=== PATIENT | female | born 1965 | race Caucasian/White ===

== ENCOUNTER 2024-07-17 13:02 | Outpatient (AMB) | payer BC, SELFPAY ==
--- NOTE | 2024-07-17 13:28 | HO.NEPHOV ---
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 She is on a chronic potassium chloride supplement, was hospitalized for a day in June 2024 for chest pain, potassium was found to be 2.3 upon admission, increased to 3.4 upon discharge. 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[employer] Surgical History (Updated 07/12/24 @ 12:25 by Claire Benedict MA) Hx of hysterectomy Hx of laparoscopic gastric banding Hx of cholecystectomy Social History (Updated 07/17/24 @ 13:36 by Yancy Garcias MA) Alcohol intake: never Patient Tobacco Use Status: Never used Tobacco Review of Systems Const Details: Const Denies body aches, Denies chills, Denies excessive sweating and Denies fatigue Eyes Denies blurry vision and Denies change in vision ENT Denies bleeding gums and Denies change in voice Card Denies chest pain and Denies leg ulcers Resp Denies cough and Denies excessive phlegm production GI Denies abdominal pain and Denies bloating Denies hematuria, Denies urinary frequency and Denies difficulty voiding Musc Denies abnormal gait Neuro Denies Neuro-related abnormal movements, Denies abnormal gait and Denies behavioral changes Psych Denies behavioral changes and Denies change in appetite Endo Denies change in body appearance, Denies cold intolerance, Denies excessive sweating and Denies fatigue Physical Exam Vital Signs: Last Vital Signs Pulse 57 07/17/24 13:32 BP 116/74 07/17/24 13:32 Pulse Ox 97 07/17/24 13:32 Oxygen Delivery Method Room Air 07/17/24 13:32 BMI result Body Mass Index 33.9 General: Not in any acute distress, comfortable, sitting on the chair Nutritional Appearance: well nourished and overweight Eyes: appearance normal, both eyes and all related structures; Alignment and Position: alignment normal and position normal Neck: No lymphadenopathy, no thyromegaly Resp: bilateral air entry equal, no added sounds present Cardio: Regular rate, regular rhythm; Heart sounds: S1 normal heart sound present and S2 normal heart sound present, no edema GI: soft, nontender, no guarding, no hepatosplenomegaly : bladder normal to inspection, bladder normal to palpation, no renal angle tenderness Skin: no rashes or lesions noted and elasticity normal Neuro: oriented to person, oriented to place, oriented to time and moves all extremities Results Reviewed Nephrology Results: No Data to Display Assessment & Plan Assessment & Plan (1) Chronic hypokalemia: Code(s): E87.6 - Hypokalemia Category: Medical (2) Anxiety: Code(s): F41.9 - Anxiety disorder, unspecified Category: Medical Plan Hypokalemia mild/moderate/severe: - most recent potassium: 3.4 at discharge - symptoms: no weakness, cramps, constipation - medications: ropinrole, quiteapin, estradiol,citalopram - diet: seems like good oral intake of potassium - we will check spot urine potassium/creatinine ratio, 24 hour urine potassium, calcium and Mg to look renal or extrarenal cause - we will get magnesium, calcium levels - blood pressures okay, unlikely to be renin aldosterone problems will see her back in 1 month Orders: Orders Calcium Today E87.6 - Hypokalemia, F41.9 - Anxiety disorder, unspecified Calcium, 24 Hr Ur Today E87.6 - Hypokalemia, F41.9 - Anxiety disorder, unspecified Magnesium, 24Hr Urine Today E87.6 - Hypokalemia, F41.9 - Anxiety disorder, unspecified Basic Metabolic Panel Today E87.6 - Hypokalemia, F41.9 - Anxiety disorder, unspecified Potassium Urine Random Today E87.6 - Hypokalemia, F41.9 - Anxiety disorder, unspecified Potassium 24 Hr Urine Group Today E87.6 - Hypokalemia, F41.9 - Anxiety disorder, unspecified Creatinine Clearance Urine 24U Today E87.6 - Hypokalemia, F41.9 - Anxiety disorder, unspecified Creatinine Urine Today E87.6 - Hypokalemia, F41.9 - Anxiety disorder, unspecified Coding Level of Care Code New Pt Level 4 (40872) Diagnoses Chronic hypokalemia E87.6 Anxiety F41.9
[2024-07-17 13:32] VITALS: BP 116/74; PULSE 57; O2SAT 97; BMI 33.9
--- OUTSIDE RECORDS SUMMARY | 2024-07-17 14:45 | XMS_ITS | Clinical Summary ---
Author Organization [facility] Address [address] [address] Phone Care Team Providers Care Checker Name Role Phone Jake Singh MD Primary Care Provider [phone] Social History Tobacco Use Types Packs/Day Years Used Date Smoking Tobacco: Never Assessed Comments Unknown Sex and Gender Information Value Date Recorded Sex Assigned at Not on file Legal Sex Female 8:05 AM EDT Gender Identity Not on file Sexual Orientation Not on file Plan of Treatment Upcoming Encounters Date Type Department Care Team (Late st Contact Info) Description 08/15/2024 3:45 PM EDT Office Visit [facility] [address] [address] Daryl Dyer MD [address] [address] Health Maintenance Due Date Last Done Comments Breast Cancer Screening 1965 Hepatitis B Vaccine (1 of 3 - 19+ 3-dose series) 08/26 Colorectal Cancer Screening: Annual FOBT 2013 Colorectal Cancer Screening: Colonoscopy 2013 Colorectal Cancer Screening: Sigmoidoscopy 2013 Pneumococcal Vaccine: 50+ Years (2 of 2 - PCV) 015 10/27/2006 Influenza Vaccine (Season Ended) 2024 Insurance [facility] Care Teams Checker Relationship Specialty Start Date End Date Jake Singh MD 175 [facility] [address] [place] [address] PCP - General Internal Medicine 07/05/24
== END 2024-07-17 14:14 | disposition home or self-care (01) ==
LOC: HO.HKAS 13:03
PROVIDERS: PCP Internal Medicine; Visit Provider Internal Medicine Critical Care Medicine
DX: E87.6 Hypokalemia (principal); F41.9 Anxiety disorder, unspecified
CPT/HCPCS: 99204

== ENCOUNTER 2024-07-17 14:20 | Outpatient (REF) | payer BC, SELFPAY ==
[2024-07-17 18:04] LABS: Anion Gap 11 (12-20); Blood Urea Nitrogen 10 mg/dL (9-16); Calcium 8.1 mg/dL (8.4-10.2); Carbon Dioxide 28 mmol/L (22-29); Chloride 107 mmol/L (96-108); Estimated Glomerular Filt Rate > 60; Glucose Random 97 mg/dL (60-115); Potassium 3.3 mmol/L (3.3-5.1); Sodium 143 mmol/L (135-145)
[2024-07-17 18:08] LABS: Creatinine Urine 416.79 mg/dL; Potassium Urine Random 110.8 mmol/L
== END 2024-07-17 14:21 | disposition home or self-care (01) ==
LOC: HO.HKASLDS 14:20
PROVIDERS: Visit Provider Internal Medicine Critical Care Medicine
DX: F41.9 Anxiety disorder, unspecified (principal); E87.6 Hypokalemia
CPT/HCPCS: 36415; 80048; 82570; 84133

== ENCOUNTER 2024-07-24 15:44 | Outpatient (REF) | payer BC, SELFPAY ==
--- OUTSIDE RECORDS SUMMARY | 2024-07-24 17:38 | XMS_ITS | Clinical Summary ---
Author Organization [facility] Address [address] [address] Phone Care Team Providers Care Developer Relations Manager Name Role Phone Jake Singh MD Primary Care Provider [phone] Social History Tobacco Use Types Packs/Day Years [...] Office Visit [facility] [address] [address] Daryl Dyer MD [address] [address] Health Maintenance Due Date Last Done Comments Breast Cancer Screening 1964 Hepatitis B Vaccine (1 of 3 - 19+ 3-dose series) 08/26 Colorectal Cancer Screening: Annual FOBT 2013 Colorectal Cancer Screening: Colonoscopy 2013 Colorectal Cancer Screening: Sigmoidoscopy 2013 Pneumococcal Vaccine: 50+ Years (2 of 2 - PCV) 015 10/27/2006 Influenza Vaccine (Season Ended) 2024 Insurance [facility] Care Teams Developer Relations Manager Relationship Specialty Start Date End Date Jake Singh MD 175 [facility] 200 [place] [address] PCP - General Internal Medicine 07/05/24
[2024-07-24 18:19] LABS: Creatinine, mg/dL 230.42; Potassium, 24U 41.9 mmol/L
[2024-07-24 19:44] LABS: Creatinine, 24Hr Urine 1.2 G/Day (1.0-2.0); Total Volume 24 Hour Urine 525 mL
[2024-07-24 19:47] LABS: Creatinine (CrCl) 0.77 mg/dL (0.5-1.4); Creatinine Clearance 109.1 mL/min (85-125)
[2024-07-28 00:43] LABS: Creatinine, 24H Ur 1.15 g/24 h (0.50-2.15); Magnesium, 24H Urine 20 mg/24 h (18-130); Magnesium, Urine 24H/g Creat 17 mg/g creat (30-135); Total Volume 525 mL
[2024-08-02 18:59] LABS: Calcium, 24 Hr Urine 14 mg/24 h; Calcium/Creatinine Ratio 12 mg/g creat (30-275); Creatinine 24Hr Urine 1.15 g/24 h (0.50-2.15)
== END 2024-07-24 15:45 | disposition home or self-care (01) ==
LOC: HO.HKASLDS 15:44
PROVIDERS: Visit Provider Internal Medicine Critical Care Medicine
DX: E87.6 Hypokalemia (principal); F41.9 Anxiety disorder, unspecified
CPT/HCPCS: 82340; 82575; 83735; 84133

== ENCOUNTER 2024-07-24 16:11 | Outpatient (REF) | payer BC, SELFPAY ==
[2024-07-24 18:17] LABS: Calcium 8.2 mg/dL (8.4-10.2)
[2024-07-24 18:20] LABS: Estimated Glomerular Filt Rate > 60
== END 2024-07-24 16:12 | disposition home or self-care (01) ==
LOC: HO.HKASLDS 16:11
PROVIDERS: Visit Provider Internal Medicine Critical Care Medicine
DX: E87.6 Hypokalemia (principal); F41.9 Anxiety disorder, unspecified
CPT/HCPCS: 36415; 82310; 82565

== ENCOUNTER 2024-08-23 10:51 | Outpatient (AMB) | payer BC, SELFPAY ==
[2024-08-23 10:52] VITALS: BP 112/86; BMI 34.0
--- NOTE | 2024-08-23 10:52 | HO.NEPHOV_ITS ---
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 She is on a chronic potassium chloride supplement, was hospitalized for a day in June 2024 for chest pain, potassium was found to be 2.3 upon admission, increased to 3.4 upon discharge. She is on KCl 20meq daily. Her 24hr urine potassium, Magnesium and calcium levels are low suggesting extra renal loss. 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[employer] Surgical History Hx of hysterectomy Hx of laparoscopic gastric banding Hx of cholecystectomy Social History Alcohol intake: never Patient Tobacco Use Status: Never used Tobacco Physical Exam Vital Signs: Last Vital Signs BP 112/86 08/23/24 10:52 BMI result Body Mass Index 34.0 General: lady with red dyed hairs, not in acute distress, very calm and pleasant Nutritional Appearance: well nourished and overweight Eyes: appearance normal, both eyes and all related structures; Alignment and Position: alignment normal and position normal Neck: No lymphadenopathy, no thyromegaly Resp: bilateral air entry equal, no added sounds present Cardio: Regular rate, regular rhythm; Heart sounds: S1 normal heart sound present and S2 normal heart sound present GI: soft, nontender, no guarding, no hepatosplenomegaly : bladder normal to inspection, bladder normal to palpation, no renal angle tenderness Skin: no rashes or lesions noted and elasticity normal Neuro: oriented to person, oriented to place, oriented to time and moves all extremities Results Reviewed Nephrology Results: Sodium, (135-145) 143 mmol/L 07/17/24 Potassium, (3.3-5.1) 3.3 mmol/L 07/17/24 Chloride, (96-108) 107 mmol/L 07/17/24 Carbon Dioxide, (22-29) 28 mmol/L 07/17/24 BUN, (9-16) 10 mg/dL 07/17/24 Creatinine, (0.5-1.4) 0.77 mg/dL 07/24/24 Calcium, (8.4-10.2) 8.2 mg/dL L 07/24/24 Urine Creatinine 416.79 mg/dL 07/17/24 Assessment & Plan Assessment & Plan (1) Chronic hypokalemia: Code(s): E87.6 - Hypokalemia Category: Medical (2) Anxiety: Code(s): F41.9 - Anxiety disorder, unspecified Category: Medical Plan Hypokalemia mild/moderate/severe: - most recent potassium: 3.4 at discharge, will repeat again today and will give her a call. - symptoms: no weakness, cramps, constipation - medications: ropinrole, quiteapin, estradiol,citalopram - diet: seems like good oral intake of potassium - 24 hrs urine showed low K, Calcium as well as Magnesium levels suggestive of extra renal loss. She is also alkalotic, ruling out RTA. - we will get magnesium, calcium levels - blood pressures okay, unlikely to be renin aldosterone problems, low aldosterone in the hospital but did not check renin levels Orders: Orders Aldost/Renin Today E87.6 - Hypokalemia, F41.9 - Anxiety disorder, unspecified Basic Metabolic Panel Today E87.6 - Hypokalemia, F41.9 - Anxiety disorder, unspecified Magnesium Today E87.6 - Hypokalemia, F41.9 - Anxiety disorder, unspecified Coding Level of Care Code Est Pt Level 3 (71445) Diagnoses Chronic hypokalemia E87.6 Anxiety F41.9
--- OUTSIDE RECORDS SUMMARY | 2024-08-23 11:37 | XMS_ITS | Clinical Summary ---
Author Organization [facility] Address [address] [place] [address] Care Team Providers Care Belt Picker Name Role Phone Jake Singh MD Primary Care Provider Unavailab le Allergies No known active allergies Medications Medication Sig Dispensed Refills Start Date End Date Status QUEtiapine (SEROquel) 12.5 MG split tablet Take 2 split tablet (25 mg total) by mouth every night at bedtime. 0 Active estradiol (ESTRACE) 2 MG tablet Take 1 tablet (2 mg total) by mouth daily. 0 Active citalopram (CeleXA) 20 MG tablet Take 1 tablet (20 mg total) by mouth daily. 0 Active ROPINIROLE HCL PO Take by mouth. 0 Act priscilla clindamycin (CLINDAGEL) 1 % gelIndications:Hidra denitis Suppurativa Apply 1 application topically 2 (two) times a day. to perianal region (by Dr. Lyons) 0 Active Family History Medical History Relation Name Comments Cancer Neg Hx Social History Tobacco Use Types Packs/Day Years Used Date Smoking Tobacco: Never Tobacco Cessation:Counseling Given: Not Answered Alcohol Use Standard Drinks/Week Comments Yes 0 (1 standard drink = 0.6 oz pur e alcohol) Social drinker Sex and Gender Information Value Date Recorded Sex Assigned at Female 06/11/2022 2:03 PM EDT Gender Identity Not on file Sexual Orientation Not on file Job Start Date Occupation Industry Not on file Not on file Not on file Last Filed Vital Signs Vital Sign Reading Time Taken Comments Blood Pressure 139/78 10/01/2023 1:32 PM EDT Pulse 88 10/01/2023 1:32 PM EDT Temperature 36.6 C (97.9 F) 10/01/2023 1:32 PM EDT Respiratory Rate - - Oxygen Saturation 83% 10/01/2023 1:3 2 PM EDT pt has very long nails on Inhaled Oxygen Concentration - - Weight 95 kg (209 lb 6.4 oz) 10/01/2023 1:32 PM EDT Height 161.5 cm (5' 3.6 ) 06/24/2022 1: 03 PM EDT Body Mass Index 36.4 06/24/2022 1:03 PM EDT Plan of Treatment Health Maintenance Due Date Last Done Comments Hepatitis B Vaccines (1 of 3 - 3-dose series) 1964 Hepatitis C Screening 1964 COVID-19 Vaccine (#1) 02/26/1965 Depression Screening 1976 Preventative Health Evaluation 1982 Cervical Cancer Screening (P ap Smear) 1985 Colon Cancer Screening (Colonoscopy) 2009 Breast Cancer Screening (Mammogram) 2014 Shingrix-Zoster Vaccine (1 of 2) 2014 DTap / Tdap / Td (2 - Td or Tdap) 01/23/2021 011 Influenza Vaccine (#1) 2024 Pneumococcal Vaccine Aged Out 10/27/2006 No long er eligible based on patient's age to complete this topic RSV Ped < 20 months Aged Out No longe r eligible based on patient's age to complete this topic Care Teams Belt Picker Relationship Specialty Start Date End Date Jake Singh MD PCP - General Internal Medicine 06/11/22
--- OUTSIDE RECORDS SUMMARY | 2024-08-23 11:37 | XMS_ITS | Clinical Summary ---
Author Organization 175 [facility] Address [address] [place] [address] Phone Care Team Providers Care Archeology Faculty Member Name Role Phone Jake Singh MD Primary Care Provider [phone] Allergies No known active allergies Medications potassium chloride 20 mEq tablet extended release Take 2 tablets by mouth 1 (one) time each day. Active estradioL (ESTRACE) 2 mg tablet Take 1 tablet (2 mg total) by mouth 1 (one) time each day. 90 tablet 1 5 Active rOPINIRole (REQUIP) 4 mg tabletIndicatio ns:Restless legs syndrome Take 1 tablet (4 mg total) by mouth at bedtime. 90 tablet 1 5 Active meloxicam (MOBIC) 15 mg tabletIndicatio ns:Bicipital tendonitis of right shoulder,Right lateral epicondylitis,D e Quervain's tenosynovitis, right Take 1 tablet (15 mg total) by mouth 1 (one) time each day if needed for moderate pain. Take with food. 30 each 5 08/02/19 26 Active citalopram (CeleXA) 20 mg tablet Take 1 tablet (20 mg total) by mouth at bedtime. 90 tablet 1 5 Active QUEtiapine (SEROquel) 25 mg tablet Take 1 tablet (25 mg total) by mouth at bedtime. 90 tablet 1 5 Active QUEtiapine (SEROquel) 25 mg tablet Take 1 tablet (25 mg total) by mouth at bedtime. 08/16/19 25 Discontinu ed(Reorder ) citalopram (CeleXA) 20 mg tablet Take 1 tablet (20 mg total) by mouth at bedtime. 08/16/19 25 Discontinu ed(Reorder ) Active Problems No known active problems Encounters Date Type Department Care Team Description 08/21/2024 11:30 AM EDT Consult General Surgery - [address] [place] [id number] Brandon Lomeli MD Hidradenitis suppurativa 08/01/2024 3:15 PM EDT Office Visit Internal Medicine - [place] [facility] [address] [place] [address] Jami Watson PA Bicipital tendonitis of right shoulder (Primary Dx); Right lateral epicondylitis; De Quervain's tenosynovitis, right 06/30/2024 11:15 AM EDT Office Visit Internal Medicine [facility] 175 [facility] [address] [place] [address] Jake Singh MD Hospital discharge follow-up (Primary Dx); Chest pain at rest; Hypokalemia; Epidermoid cyst of skin of inguinal region from Last 3 Months Surgical History Surgery Date Site/Laterality Comments OTHER SURGICAL HISTORY -2009 PROCEDURE: ND TOTAL ABDOMINAL HYSTERECT W/WO RMVL TUBE OVARY; COMMENT: Dr. Charles due DUB CHOLECYSTECTOMY PROCEDURE: LAPAROSCOPY, CHOLECYSTECTOMY; COMMENT: Dr. Collins LAPAROSCOPIC GASTRIC BANDING -2013 PROCEDURE: LAP ADJUSTABLE GASTRIC BAND; COMMENT: Dr. Collins Medical History Medical History Date Comments Anxiety and depression DX:Anxiet y and depression; COMMENT: psych f/u BPH RLS (restless legs syndrome) DX: RLS (restless legs syndrome) Vitamin D deficiency DX:Vitamin D deficiency Vitamin B 12 deficiency DX:Vitam in B 12 deficiency Obesity, Class II, BMI 35-39.9 D X:Obesity, Class II, BMI 35-39.9 Family History Medical History Relation Name Comments Diabetes Mother Hypertension Mother Relation Name Status Comments Father (Age 23) MVA Mother Alive Social History Tobacco Use Types Packs/Day Years Used Date Smoking Tobacco: Never Smokeless Tobacco: Never Alcohol Use Standard Drinks/Week Comments Yes 0 (1 standard drink = 0.6 oz pur e alcohol) Comments Unknown Sex and Gender Information Value Date Recorded Sex Assigned at Not on file Legal Sex Female 11:38 PM EST Gender Identity Not on file Sexual Orientation Not on file Obstetrics History Last Filed Vital Signs Vital Sign Reading Time Taken Comments Blood Pressure 128/87 08/21/2024 11:26 AM EDT Pulse 85 08/21/2024 11:26 AM EDT Temperature 36.4 C (97.5 F) 08/21/2024 11:26 AM EDT Respiratory Rate - - Oxygen Saturation 97% 08/01/2024 3:11 PM EDT Inhaled Oxygen Concentration - - Weight 90.6 kg (199 lb 12.8 oz) 025 11:26 AM EDT Height 162.6 cm (5' 4 ) 08/21/2024 11:2 6 AM EDT Body Mass Index 34.3 08/21/2024 11:26 AM EDT Plan of Treatment Health Maintenance Due Date Last Done Comments Breast Cancer Screening 1964 Hepatitis B Vaccines (1 of 3 - 19+ 3-dose series) 08/27/1983 Cervical Cancer Screening: Pap Smear 1985 Pneumococcal Vaccine: 50+ Years (2 of 2 - PCV) 2014 10/27/2006 Zoster Vaccines (1 of 2) 2014 Colorectal Cancer Screening: Colonoscopy 01/17/2022 Depression Screening 01/17/2022 HIV Screening 01/17/2022 Hepatitis C Screening 01/17/2022 Social Influencers of Health Screening 01/17/2022 Influenza Vaccine (#1) 2024 Cholesterol Screening (Lipid Panel) 07/21/2028 07/22/2023 DTaP,Tdap,and Td Vaccines (3 - Td or Tdap) 07/09/2032 07/09/2022, 01/23/2011 RSV Immunization Adult Patients (1 - 1-dose 75+ series) 08/27/2039 COVID-19 Vaccine Completed 11/02/2023, , 03/30/2020, Additional history exists HIB Vaccines Aged Out No longer eligi ble based on patient's age to complete this topic HPV Vaccines Aged Out No longer eligi ble based on patient's age to complete this topic Hepatitis A Vaccines Aged Out No long er eligible based on patient's age to complete this topic IPV Vaccines Aged Out No longer eligi ble based on patient's age to complete this topic MMR Vaccines Aged Out No longer eligi ble based on patient's age to complete this topic Meningococcal ACWY Vaccine Aged Out N o longer eligible based on patient's age to complete this topic Meningococcal B Vaccine Aged Out No l onger eligible based on patient's age to complete this topic RSV Immunization Patients Under 20 months Aged Out No longer eligible based on patient's age to complete this topic Varicella Vaccines Aged Out No longer eligible based on patient's age to complete this topic Procedures Procedure Name Priority Date/Time Associated Diagnosis Comments POC URINE NON-AUTO W/O MICRO Routine 06/30/2024 12:00 PM EDT Hypokalemia Hospital discharge follow-up from Last 3 Months Results * (ABNORMAL) POC Urine Non-Auto W/O Micro (06/30/2024 12:00 PM EDT) Glucose UA POC Negative Negative, Trace mg/dL Leukocytes UA POC Negative Negative Nitrite UA POC Negative Negative Urobilinogen UA POC 1.0 E.U./dL mg/dL Protein UA POC Trace(A) Negative, >=300 mg/dL PH UA POC 5.5 Blood UA POC 1+(A) Negative, Large Specific [place] UA POC >=1.030 Ketones UA POC Trace Negative, Trace Bilirubin UA POC 1+(A) Negative, Small Urine Urine specimen obtained by clean catch procedure / Unknown 06/30/2024 12:00 PM EDT Jake Singh MD POINT OF CARE TEST ENTER/EDIT OR DERABLES Final Result from Last 3 Months Insurance [facility] [place] [place] ([facility]) Care Teams Archeology Faculty Member Relationship Specialty Start Date End Date Jake Singh MD [address] [address] PCP - General Internal Medicine 01/31/19
--- OUTSIDE RECORDS SUMMARY | 2024-08-23 11:37 | XMS_ITS | Encounter Summary ---
Author Organization [facility] Address [address] [place] [address] Care Team Providers Care A R Specialist Name Role Phone Jake Singh MD Primary Care Provider [phone] Encounter Details Date Type Department Care Team Description 08/05/2023 Orders Only Internal Medicine - [address], [address] [place] [address] Jake Singh MD [address] [place] [address] Social History Tobacco Use Types Packs/Day Years Used Date Smoking Tobacco: Never Smokeless Tobacco: Never Alcohol Use Standard Drinks/Week Comments Yes 0 (1 standard drink = 0.6 oz pur e alcohol) social Physical Activity Answer Date Recorded On average, how many days pe r week do you engage in moderate to strenuous exercise (like walking fast, running, jogging, dancing, swimming, biking, or other activities that cause a light or heavy sweat)? 0 days 11/06/2019 On average, how many minutes do you engage in exercise at this level? Not asked Sex Assigned at Date Recorded Not on file documented as of this encounter Plan of Treatment Not on file documented as of this encounter Visit Diagnoses Not on filedocumented in this encounter Care Teams A R Specialist Relationship Specialty Start Date End Date Jake Singh MD [address] [place], [place] [id number] PCP - General Internal Medicine 01/31/19 documented as of this encounter
== END 2024-08-23 11:35 | disposition home or self-care (01) ==
LOC: HO.HKAS 10:51
PROVIDERS: PCP Internal Medicine; Visit Provider Internal Medicine Critical Care Medicine
DX: E87.6 Hypokalemia (principal); F41.9 Anxiety disorder, unspecified
CPT/HCPCS: 99213

== ENCOUNTER 2024-08-23 10:51 | Outpatient (REF) | payer BC, SELFPAY ==
[2024-08-23 14:55] LABS: Anion Gap 11 (12-20); Blood Urea Nitrogen 11 mg/dL (9-16); Calcium 7.8 mg/dL (8.4-10.2); Carbon Dioxide 30 mmol/L (22-29); Chloride 104 mmol/L (96-108); Estimated Glomerular Filt Rate > 60; Magnesium 1.7 mg/dL (1.6-2.6); Potassium 2.8 mmol/L (3.3-5.1); Sodium 142 mmol/L (135-145)
[2024-08-28 14:34] LABS: Plasma Renin Activity 0.39 ng/mL/h (0.25-5.82)
== END 2024-08-23 10:52 | disposition home or self-care (01) ==
LOC: HO.HKASLDS 10:51
PROVIDERS: PCP Internal Medicine; Visit Provider Internal Medicine Critical Care Medicine
DX: E87.6 Hypokalemia (principal); F41.9 Anxiety disorder, unspecified; Z79.899 Other long term (current) drug therapy
CPT/HCPCS: 36415; 80048; 82088; 83735

== ENCOUNTER 2024-11-24 13:27 | Outpatient (AMB) | payer BC, SELFPAY ==
[2024-11-24 13:33] VITALS: BP 130/84; PULSE 84; O2SAT 99; BMI 34.3
--- NOTE | 2024-11-24 13:33 | HO.NEPHOV ---
Vital Signs 11/24/24 13:33 Height 5 ft 4 in Weight 200 lb BMI 34.3 BP 130/84 Blood Pressure Location Lt brachial Position Sitting Pulse 84 Pulse Source Pulse Oximeter Pulse Oximetry (%) 99 Oxygen Delivery Method Room Air Intake Visit Reasons: 3mon f/u, left vm Insulation Worker Furnace Installer Required: No Accompanied by: Self / Same As Patient Allergies No Known Allergies Allergy (Verified 11/24/24 13:35) HPI Comments Details: 58-year-old lady with past medical history of anxiety, restless legs syndrome is referred for evaluation of hypokalemia. She is on a chronic potassium chloride supplement, was hospitalized for a day in June 2024 for chest pain, potassium was found to be 2.3 upon admission, increased to 3.4 upon discharge. She is on KCl 20meq daily. Her 24hr urine potassium, Magnesium and calcium levels are low suggesting extra renal loss. 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 Surgical History Hx of hysterectomy Hx of laparoscopic gastric banding Hx of cholecystectomy Social History Alcohol intake: never Patient Tobacco Use Status: Never used Tobacco Review of Systems Const Details: Const : no body aches, no chills, no excessive sweating and no fatigue Eyes: no blurry vision and no change in vision ENT: no bleeding gums and no change in voice, no dizziness Card: no chest pain, no shortness of breath, no orthopnea, no PND Resp: no cough, no excessive phlegm production, no SOB GI: no abdominal pain and +nausea, + vomiting : no hematuria, no urinary frequency and no difficulty voiding Musc: no abnormal gait, no bone pain Neuro: no abnormal movements, no weakness, no dizziness, no abnormal gait and no behavioral changes Psych: no behavioral changes and no change in appetite Endo: no change in body appearance no fatigue Physical Exam Vital Signs: Last Vital Signs Pulse 84 11/24/24 13:33 BP 130/84 11/24/24 13:33 Pulse Ox 99 11/24/24 13:33 Oxygen Delivery Method Room Air 11/24/24 13:33 BMI result Body Mass Index 34.3 General: Pleasant lady, Not in any acute distress Nutritional Appearance: well nourished and overweight Eyes: appearance normal, both eyes and all related structures; Alignment and Position: alignment normal and position normal Neck: No lymphadenopathy, no thyromegaly Resp: bilateral air entry equal, occasional added sounds present Cardio: Regular rate, regular rhythm; Heart sounds: S1 normal heart sound present and S2 normal heart sound present, +edema GI: soft, nontender, no guarding, no hepatosplenomegaly : bladder normal to inspection, bladder normal to palpation, no renal angle tenderness Skin: no rashes or lesions noted and elasticity normal Neuro: oriented to person, oriented to place, oriented to time and moves all extremities Results Reviewed Nephrology Results: Sodium, (135-145) 142 mmol/L 08/23/24 Potassium, (3.3-5.1) 2.8 mmol/L L* 08/23/24 Chloride, (96-108) 104 mmol/L 08/23/24 Carbon Dioxide, (22-29) 30 mmol/L H 08/23/24 BUN, (9-16) 11 mg/dL 08/23/24 Creatinine, (0.5-1.4) 0.78 mg/dL 08/23/24 Calcium, (8.4-10.2) 7.8 mg/dL L 08/23/24 Urine Creatinine 416.79 mg/dL 07/17/24 Assessment & Plan Assessment & Plan (1) Chronic hypokalemia: Code(s): E87.6 - Hypokalemia Category: Medical (2) Anxiety: Code(s): F41.9 - Anxiety disorder, unspecified Category: Medical Plan Hypokalemia mild/moderate/severe: - most recent potassium: 2.6 in August, currently on potassium replacement. - her hypokalemia is possibly secondary to laparoscopic gastric banding nausea and vomiting. 24 hrs urine showed low K, Calcium as well as Magnesium levels suggestive of extra renal loss. - symptoms: no weakness, cramps, constipation - medications: ropinrole, quiteapin, estradiol,citalopram - diet: seems like good oral intake of potassium - blood pressures okay, unlikely to be renin aldosterone problems, low aldosterone in the hospital but did not check renin levels plan: - will repeat her BMP, Mag - will calculate a fractional excretion of magnesium for now potassium and calcium - will refill her medications, she might need chronic potassium supplements, as the benefits of laparoscopic band procedure overweigh the discomfort taking pills. Three follow-up in 6 months with repeat labs Orders: Orders: Orders UA and rflx microscopic Today E87.6 - Hypokalemia, F41.9 - Anxiety disorder, unspecified Basic Metabolic Panel 6 Months E87.6 - Hypokalemia, F41.9 - Anxiety disorder, unspecified Magnesium 6 Months E87.6 - Hypokalemia, F41.9 - Anxiety disorder, unspecified Basic Metabolic Panel Today E87.6 - Hypokalemia, F41.9 - Anxiety disorder, unspecified Magnesium Today E87.6 - Hypokalemia, F41.9 - Anxiety disorder, unspecified Potassium Urine Random Today E87.6 - Hypokalemia, F41.9 - Anxiety disorder, unspecified Creatinine Urine Today E87.6 - Hypokalemia, F41.9 - Anxiety disorder, unspecified Magnesium, Random Urine Today E87.6 - Hypokalemia, F41.9 - Anxiety disorder, unspecified Calcium, Random Urine Today E87.6 - Hypokalemia, F41.9 - Anxiety disorder, unspecified Coding Level of Care Code Est Pt Level 4 (21635) Diagnoses Chronic hypokalemia E87.6 Anxiety F41.9
--- OUTSIDE RECORDS SUMMARY | 2024-11-24 16:06 | XMS_ITS | Clinical Summary ---
Author Organization [facility] Address [address] [place] [address] Care Team Providers Care Motor Vehicle Examiner Name Role Phone Jake Singh MD Primary [...] Maintenance Due Date Last Done Comments Hepatitis C Screening 1965 COVID-19 Vaccine (#1) 02/26/1965 Depression Screening 1976 Preventative Health Evaluation 1982 Cervical Cancer Screening (P ap Smear) 1985 Colon Cancer Screening (Colonoscopy) 2009 Breast Cancer Screening (Mammogram) 2014 Shingrix-Zoster Vaccine (1 of 2) 2014 DTap / Tdap / Td (2 - Td or Tdap) 01/23/2021 011 Influenza Vaccine (#1) 2024 RSV Adult > 60+ Yrs or Pregn ant (1 - 1-dose 75+ series) 08/27/2039 Pneumococcal Vaccine Aged Out 10/27/2006 No long er eligible based on patient's age to complete this topic Hepatitis B Vaccines Aged Out No long er eligible based on patient's age to complete this topic RSV Ped < 20 months Aged Out No longe r eligible based on patient's age to complete this topic Care Teams Motor Vehicle Examiner Relationship Specialty Start Date End Date Jake Singh MD PCP - General Internal Medicine 06/11/22
--- OUTSIDE RECORDS SUMMARY | 2024-11-24 16:06 | XMS_ITS | Clinical Summary ---
Author Organization [facility] Address [address] [place] [phone] Phone Care Team Providers Care Ground Instructor Basic Name Role Phone Jake Singh MD Primary Care Provider [phone] Family History Medical History Relation Comments Diabetes Mother Hypertension Mother Relation Status Comments Mother Social History Tobacco Use Types Packs/Day Years Used Date Smoking Tobacco: Never Smokeless Tobacco: Never Tobacco Cessation:Counseling Given: Not Answered [...] Care Team (Late st Contact Info) Description 12/13/2024 2:30 PM EST Office Visit [facility]. [address] [phone] Daryl Dyer MD [address] [phone] Health Maintenance Due Date Last Done Comments Breast Cancer Screening 1965 Pneumococcal Vaccine: 50+ Ye ars (2 of 2 - PCV) 10/28/2007 10/27/2006 Colorectal Cancer Screening: Annual FOBT 2013 Colorectal Cancer Screening: Colonoscopy 2013 Colorectal Cancer Screening: Sigmoidoscopy 2013 Influenza Vaccine (#1) 2024 Hepatitis B Vaccine Aged Out No longe r eligible based on patient's age to complete this topic Insurance [facility] Care Teams Ground Instructor Basic Relationship Specialty Start Date End Date Jake Singh MD [address] [address] PCP - General Internal Medicine 07/05/24
--- OUTSIDE RECORDS SUMMARY | 2024-11-24 16:06 | XMS_ITS | Clinical Summary ---
Author Organization [facility] Address [address] [place] [phone] Phone Care Team Providers Care Quality Rn Name Role Phone Jake Singh MD Primary Care Provider [phone] Allergies No known active allergies Medications potassium chloride 20 mEq tablet extended release Take 2 tablets by mouth 1 (one) time each day. Active estradioL (ESTRACE) 2 mg tablet Take 1 tablet (2 mg total) by mouth 1 (one) time each day. 90 tablet 1 07/24/2024 Active rOPINIRole (REQUIP) 4 mg tabletIndicatio ns:Restless legs syndrome Take 1 tablet (4 mg total) by mouth at bedtime. 90 tablet 1 07/24/2024 Active citalopram (CeleXA) 20 mg tablet Take 1 tablet (20 mg total) by mouth at bedtime. 90 tablet 1 08/15/2024 Active QUEtiapine (SEROquel) 25 mg tablet Take 1 tablet (25 mg total) by mouth at bedtime. 90 tablet 1 08/15/2024 Active meloxicam (MOBIC) 15 mg tabletIndicatio ns:Bicipital tendonitis of right shoulder,Right lateral epicondylitis,D e Quervain's tenosynovitis, right Take 1 tablet (15 mg total) by mouth 1 (one) time each day. 30 tablet 1 08/29/2024 Active Active Problems No known active problems Surgical History Surgery Date Site/Laterality Comments OTHER SURGICAL HISTORY -2009 PROCEDURE: MT TOTAL ABDOMINAL HYSTERECT W/WO RMVL TUBE OVARY; [...] Last Done Comments Breast Cancer Screening 1965 Colorectal Cancer Screening: Colonoscopy 1964 Cervical Cancer Screening: Pap Smear 1985 Pneumococcal Vaccine: 50+ Years (2 of 2 - PCV) 2014 10/27/2006 Zoster Vaccines (1 of 2) 2014 HIV Screening 01/17/2022 Hepatitis C Screening 01/17/2022 Social Influencers of Health Screening 01/17/2022 Depression Screening 02/09/2024 Influenza Vaccine (#1) 2024 Cholesterol Screening (Lipid [...] patient's age to complete this topic Insurance [facility] ([facility]) Care Teams Quality Rn Relationship Specialty Start Date End Date Jake Singh MD [address] [place], [place] [id number] PCP - General Internal Medicine 01/31/19
--- OUTSIDE RECORDS SUMMARY | 2024-11-24 16:06 | XMS_ITS ---
Author Name [facility] Organization Unknown Care Team Organization Name Specialty Phone Email Start Date End Da te [facility] Jose Elizabeth Primary Care 07/17/2022 09/27/2023 [facility] Jami Watson Primary Care 06/15/2022 09/27/2023 [facility] Janneth Primary Care 12/16/2021 09/27/2023
== END 2024-11-24 15:54 | disposition home or self-care (01) ==
LOC: HO.HKAS 13:28
PROVIDERS: PCP Internal Medicine; Visit Provider Internal Medicine Critical Care Medicine
DX: E87.6 Hypokalemia (principal); F41.9 Anxiety disorder, unspecified
CPT/HCPCS: 99214

== ENCOUNTER 2024-11-24 13:27 | Outpatient (REF) | payer BC, SELFPAY ==
[2024-11-24 18:42] LABS: Anion Gap 10 (12-20); Blood Urea Nitrogen 12 mg/dL (9-16); Calcium 8.4 mg/dL (8.4-10.2); Carbon Dioxide 28 mmol/L (22-29); Chloride 107 mmol/L (96-108); Estimated Glomerular Filt Rate > 60; Magnesium 1.9 mg/dL (1.6-2.6); Potassium 3.3 mmol/L (3.3-5.1); Sodium 142 mmol/L (135-145)
[2024-11-24 18:50] LABS: Appearance Urine Cloudy; Glucose Urine UA 100 mg/dL (Negative); PH 6.0 (5.0-9.0); Specific Gravity - Urine >= 1.030 (1.005-1.025); UMIC TRIGGER UA YES
[2024-11-26 18:08] LABS: Calcium, Random Urine 6.0 mg/dL
[2024-11-29 18:43] LABS: Creatinine, Random Urine 458 mg/dL (20-275); Magnesium, Random Urine 15 mg/g creat (22-130)
== END 2024-11-24 13:28 | disposition home or self-care (01) ==
LOC: HO.HKASLDS 13:27
PROVIDERS: PCP Internal Medicine; Visit Provider Internal Medicine Critical Care Medicine
DX: E87.6 Hypokalemia (principal); F41.9 Anxiety disorder, unspecified; Z79.899 Other long term (current) drug therapy
CPT/HCPCS: 36415; 80048; 81001; 82310; 82570; 83735; 84133